=== PATIENT | male | born 1965 | race Caucasian/White ===

== ENCOUNTER → 2017-07-14 | Outpatient (REF) | payer OTHER ==
[~2017-07-14] MED LIST: CYCL10TA29 PO; IBUP200C71 PO; NO ROUTINE MEDS; SIL20T TOP; TOBOD OD; TYLENOL ALLERGY; [UNRECOGNIZED DRUG - OTHER]
== END ==
LOC: ZZSENDIN 14:14
PROVIDERS: ATTEND Nurse Practitioner Family
DX: D48.7 Neoplasm of uncertain behavior of other specified sites (principal)
CPT/HCPCS: 88305

== ENCOUNTER → 2017-07-28 | Outpatient (CLI) | payer OTHER ==
--- NOTE | 2017-07-28 13:43 | RADIOLOGY IMAGING REPORT ---
FACILITY: [facility] - [place] PATIENT NAME: Juanpablo Ya : 1965 MR: [id number] V: [id number] EXAM DATE: ORDERING PHYSICIAN: GUERITA CHRISTOPHER TECHNOLOGIST: [place] [facility] [place] Patient: Juanpablo Ya : 1965 Visit/Account:[id number] Date of Sevice: 07/28/2017 Exam type: CHEST PA AND LAT History: Acute bronchitis Comparison: None. Findings: Patient has made a limited inspiratory effort producing crowding the bronchovascular markings bilater ally. There is peribronchial thickening seen centrally and in the lower lobes. Linear consolidation in the medial right lung base likely represents atelectasis. There is no evidence of pleural effusi ons or overt pulmonary edema. Cardiac silhouette is normal in size. IMPRESSION: 1. There is peribronchial thickening centrally and in the lower lobes consistent with the clinical h istory of acute bronchitis Small band of atelectasis in the medial right lung base Report Dictated By: Radha Palma MD at 07/28/2017 1:38 PM Report E-Signed By: Radha Palma MD at 07/28/2017 1:39 PM WSN:[email or web address]
== END ==
LOC: RAD 12:19
PROVIDERS: ATTEND Nurse Practitioner Family
DX: R91.8 Other nonspecific abnormal finding of lung field (principal); J98.11 Atelectasis
CPT/HCPCS: 71046

== ENCOUNTER 2017-10-21 03:55 | Day surgery (SDC) | payer OTHER ==
[~2017-10-21] VITALS: Ht 174.6 cm; Wt 85.7 kg
[2017-10-21] VITALS (7 sets, daily range): BP systolic 96–138; BP diastolic 64–82
[~2017-10-21 03:55] MED LIST changes: +CETI-176 PO; +MULT1CAP59 PO
[2017-10-21] MEDS ORDERED: LIDOCAINE/SOD BICARB 8.4% SYR ID ONE (06:30)
[2017-10-21] MEDS ORDERED: NORMOSOL R SOLN(*) 1000 ML BAG 1,000 ML IV PRN (06:30)
[2017-10-21] MEDS ORDERED: PROPOFOL EMUL(*) 10MG/ML 20 ML 20 ML ONE ×2 (07:48→07:54)
== END 2017-10-21 09:35 | disposition home or self-care (01) ==
LOC: OR 03:55
PROVIDERS: ATTEND Internal Medicine
DX: Z12.11 Encounter for screening for malignant neoplasm of colon (principal)
CPT/HCPCS: 00812; 45378; J2704